=== PATIENT | male | born 1965 | race African-American/Black ===

== ENCOUNTER 2017-02-24 00:54 | Emergency (ER) | payer MEDICAID, OTHER ==
[~2017-02-24] VITALS: Ht 193 cm; Wt 86.2 kg
[~2017-02-24 00:54] MED LIST: IBUPROFEN600 MG ORAL; TRAMADOL HCL50 MG ORAL
[2017-02-24] MEDS ORDERED: Aspirin Baby 81mg ORAL ONE (01:30)
[2017-02-24 01:51] VITALS: BP 103/86
[2017-02-24 02:10] LABS: BASOPHILS % (AUTO) 0.4 % (0.0-2.0); BILIRUBIN, URINE NEGATIVE (NEGATIVE); EOSINOPHILS % (AUTO) 1.3 % (0.0-3.0); GLUCOSE, URINE (UA) NEGATIVE (NEGATIVE); HEMATOCRIT 40.6 % (42.0-52.0); KETONES,URINE NEGATIVE (NEGATIVE); LEUKOCYTE ESTERASE ,URINE 2+ (NEGATIVE); LYMPHOCYTES % (AUTO) 15.6 % (20.0-45.0); MEAN CORPUSCULAR VOLUME 93 FL (80-99); MONOCYTES % (AUTO) 7.7 % (1.0-10.0); NITRITE,URINE POSITIVE (NEGATIVE); PH,URINE 6 (4.5-8.0); PLATELET COUNT 259 K/UL (150-450); PROTEIN,URINE 2+ (NEGATIVE); RED BLOOD COUNT 4.34 M/UL (4.70-6.10); UROBILINOGEN,URINE 1 MG/DL (0.0-1.0); WHITE BLOOD COUNT 8.6 K/UL (4.8-10.8)
[2017-02-24 02:30] LABS: APPEARANCE,URINE CLOUDY; COLOR,URINE YELLOW
[2017-02-24] MEDS ORDERED: cefTRIAXone 1 GM in NS 55 ML IVPB ONE (02:45)
[2017-02-24 02:53] LABS: ANION GAP 5 mmol/L (5-15); BLOOD UREA NITROGEN 11 mg/dL (7-18); CALCIUM 7.8 MG/DL (8.5-10.1); CARBON DIOXIDE 33 MMOL/L (21-32); CHLORIDE 104 MMOL/L (98-107); POTASSIUM 3.7 MMOL/L (3.5-5.1); SODIUM 142 MMOL/L (136-145)
--- NOTE | 2017-02-24 03:10 | Emergency Room Report ---
History of Present Illness General Chief Complaint: Chest Pain Source: Patient Present Illness HPI This is a 51-year-old male with no significant past medical history. He presents she complaining of right-sided chest pain for 2 days. Worse with inspiration. Worse with movement. No nausea no vomiting. Subjective fever and chills. Pain is 7/10. No radiation. Allergies: Coded Allergies: No Known Allergies (Unverified , 02/26/16) Patient History Past Medical History: see triage record, old chart reviewed Past Surgical History: other Pertinent Family History: none Social History: Denies: smoking Immunizations: other Reviewed Nursing Documentation: PMH: Agreed, PSxH: Agreed Nursing Documentation-PMH Past Medical History: No Stated History Review of Systems Eye: Denies: eye pain, blurred vision ENT: Denies: ear pain, nose congestion, throat swelling Respiratory: Denies: cough, shortness of breath Cardiovascular: Reports: chest pain, Denies: palpitations Gastrointestinal: Denies: abdominal pain, diarrhea, nausea, vomiting Musculoskeletal: Denies: back pain, joint pain Skin: Denies: rash Neurological: Denies: headache, numbness Endocrine: Denies: increased thirst, increased urine Hematologic/Lymphatic: Denies: easy bruising All Other Systems: negative except mentioned in HPI Physical Exam Vital Signs Date Time Temp Pulse Resp B/P (MAP) Pulse Ox O2 Delivery O2 Flow Rate FiO2 02/24/17 00:56 98.6 79 18 115/71 99 Room Air vitals normal Sp02 EP Interpretation: reviewed, normal General Appearance: well appearing, no apparent distress, alert Head: normocephalic, atraumatic Eyes: bilateral eye PERRL, bilateral eye EOMI ENT: hearing grossly normal, normal pharynx Neck: full range of motion, supple, no meningismus Respiratory: chest non-tender, rhonchi - Right lower lobe Cardiovascular #1: regular rate, rhythm, no murmur Gastrointestinal: normal bowel sounds, non tender, no mass, no organomegaly, no bruit, non-distended Musculoskeletal: back normal, gait/station normal, normal range of motion Psychiatric: mood/affect normal Skin: warm/dry Medical Decision Making Diagnostic Impression: Primary Impression: Chest pain Qualified Codes: R07.9 - Chest pain, unspecified Additional Impressions: Community acquired bacterial pneumonia UTI (urinary tract infection) Qualified Codes: N30.00 - Acute cystitis without hematuria Proteinuria Qualified Codes: R80.9 - Proteinuria, unspecified ER Course Patient presents with right-sided chest pain consistent with pneumonia. No evidence of PE, ACS, dissection to name a few. We'll discharge home. He felt better now. Lab Results Impression labs unremarkable EKG Diagnostic Results Rate: normal Rhythm: NSR ST Segments: no acute changes ASA given to the pt in ED: Yes Rhythm Strip Diag. Results Rhythm Strip Time: 03:10 EP Interpretation: yes Rate: 70 Rhythm: NSR, no PVC's, no ectopy Chest X-Ray Diagnostic Results Chest X-Ray Diagnostic Results : Chest X-Ray Ordered: Yes # of Views/Limited/Complete: 1 View Indication: Chest Pain EP Interpretation: Yes Interpretation: no consolidation, no effusion, no pneumothorax, no acute cardiopulmonary disease Impression: No acute disease Electronically Signed by: Ignacio Roy MD Last Vital Signs Date Time Temp Pulse Resp B/P (MAP) Pulse Ox O2 Delivery O2 Flow Rate FiO2 02/24/17 01:51 79 18 Room Air 02/24/17 01:51 98.6 103/86 100 Status: improved Disposition: HOME, SELF-CARE Condition: Stable Scripts Levofloxacin* (LEVAQUIN*) 500 Mg Tablet 500 MG ORAL DAILY, #7 TAB Prov: IGNACIO ROY M.D. 02/24/17 Referrals: NOT CHOSEN DELORES/,REFERRING (PCP) Additional Instructions: Followup with your DrMagaly in 7 days. Return if symptom worsen. IGNACIO ROY M.D. Feb 24, 2017 03:10
[2017-02-24 03:11] LABS: ALANINE AMINOTRANSFERASE 20 U/L (12-78); ALBUMIN 3.1 G/DL (3.4-5.0); ASPARTATE AMINO TRANSFERASE 18 U/L (15-37); BILIRUBIN,TOTAL 0.4 MG/DL (0.2-1.0); CKMB 0.6 NG/ML (0.0-3.6); CREATINE KINASE 165 U/L (26-140)
[2017-02-24 03:12] LABS: ALKALINE PHOSPHATASE 62 U/L (46-116)
[2017-02-24 03:23] VITALS: BP 117/81
[2017-02-24] MEDS ORDERED: LEVAQUIN500 MG ORAL (05:20)
[2017-02-24 05:36] VITALS: BP 107/67
[2017-02-24 05:37] VITALS: BP 107/67
--- NOTE | 2017-02-24 11:10 | Diagnostic Imaging Report ---
Indication: Chest pain Technique: One view of the chest Comparison: none Findings: Lungs and pleural spaces are clear. Heart size is normal Impression: No acute process
--- NOTE | 2017-02-24 11:26 | Diagnostic Imaging Report ---
ndication: Right-sided chest pain Technique: IV administration nonionic contrast. Spiral acquisitions obtained from the lung bases to the lung apices. Multiplanar and 3-D reconstructions were generated. Total dose length product 1009.4 mGycm. CTDIvol(s) 22.91 mGy. Dose reduction achieved using automated exposure control Comparison: Chest radiograph taken 2 hours earlier Findings: The pulmonary arteries are well opacified. No intraluminal filling defects or other findings to suggest acute pulmonary embolus are demonstrated. No evidence of thoracic aortic aneurysm or dissection. Classic branching anatomy of the great neck vessels is noted. Normal caliber pulmonary arteries. No evidence of right ventricular dilatation. There is generalized pulmonary hyperinflation There is an area of dense consolidation in the anterior medial right middle lobe. Central to this are reticular and nodular opacities. Minimal reticular and nodular opacities are seen also within the adjacent right lower lobe. Reticular opacities are also seen at the base of the left lower lobe, although no associated airspace consolidation is evident. There are bilateral bullae in the upper lobes. No pleural effusion. The heart size is normal. There is no evidence of pericardial effusion. No mediastinal or hilar mass or adenopathy. The included thyroid is unremarkable. The included upper abdominal anatomy is unremarkable Impression: Negative for evidence of acute pulmonary embolus or acute thoracic vascular pathology Dense consolidation within the right middle lobe consistent with pneumonia. Reticular infiltrates are also seen in the bilateral lower lobes COPD changes This agrees with the preliminary interpretation provided overnight by [facility]. The CT scanner at [facility] is accredited by the [employer] and the scans are performed using protocols designed to limit radiation exposure to as low as reasonably achievable to attain images of sufficient resolution adequate for diagnostic evaluation.
--- NOTE | 2017-03-08 00:19 | Cardiology Report ---
APPROVED REPORT EKG Measurement Heart [id number] Normal sinus rhythm Incomplete right bundle branch block Borderline ECG
== END 2017-02-24 05:37 | disposition home or self-care (01) ==
LOC: EMR 01:30
DX: J18.9 Pneumonia, unspecified organism (principal); N39.0 Urinary tract infection, site not specified; R80.9 Proteinuria, unspecified
CPT/HCPCS: 36415; 71010; 71275; 80053; 81003; 82550; 82553; 84484; 85025; 85379; 87086; 87181; 93005; 96365; 99284; J0696; Q9967

== ENCOUNTER 2017-10-06 05:07 | Emergency (ER) | payer MEDICAID, OTHER ==
[~2017-10-06] VITALS: Ht 193 cm; Wt 90.7 kg
[~2017-10-06 05:07] MED LIST changes: +LEVAQUIN500 MG ORAL
[2017-10-06 05:30] VITALS: BP 126/73
[2017-10-06] MEDS ORDERED: TRAMADOL HCL50 MG ORAL (06:40)
[2017-10-06] MEDS ORDERED: IBUPROFEN600 MG ORAL (06:40)
[2017-10-06] MEDS ORDERED: Norco 5mg/325mg tab ORAL ONE (07:00)
[2017-10-06 07:05] VITALS: BP 126/73
--- NOTE | 2017-10-06 12:48 | Diagnostic Imaging Report ---
Indication: Pain in left thumb after hitting it with a saute hurt Technique: 3 views left hand Comparison: none Findings: No acute fractures. No dislocations. The joint spaces are preserved. Positioning is somewhat suboptimal, no true AP view available. Impression: No acute process
--- NOTE | 2017-10-12 16:15 | Emergency Room Report ---
History of Present Illness General Chief Complaint: Upper Extremity Injury Source: Patient Present Illness HPI Patient is a 51-year-old male who presented after increased left upper extremity pain. Patient had injured himself at work. The patient reports having increased pain to his thumb. He reports having increased pain with movements. Pain is sharp in nature.The patient was initially noted to have some symptoms consistent with dysuria. He had prior history of urinary tract infection.The this was unrelated to the patient's injury at work Allergies: Coded Allergies: No Known Allergies (Unverified , 02/26/16) Patient History Past Medical History: see triage record Reviewed Nursing Documentation: PMH: Agreed; PSxH: Agreed Nursing Documentation-PMH Past Medical History: No Stated History Review of Systems All Other Systems: negative except mentioned in HPI Physical Exam General Appearance: well appearing, no apparent distress, alert, GCS 15 Head: normocephalic, atraumatic ENT: hearing grossly normal, normal voice Neck: full range of motion, supple Respiratory: no respiratory distress, speaking full sentences Gastrointestinal: normal inspection Musculoskeletal: no calf tenderness Neurologic: normal inspection, alert, oriented x3, normal gait, other - thumb pain to thenar eminence, no ligamentous laxity noted Psychiatric: mood/affect normal Skin: no rash Medical Decision Making Diagnostic Impression: Primary Impression: Left thumb sprain ER Course Patient presented for thumb pain. Differential diagnosis included was not limited to fracture, dislocation, sprain among others. X-ray imaging of the left hand 3 views interpreted by me showed normal bony alignment without fracture. The patient was placed on light duty. He is advised follow-up with workers comp physician. The patient is advised to return if he had any concerns. The patient is advised follow-up with his primary care physician for urinary symptoms Disposition: HOME, SELF-CARE Condition: Stable Scripts Tramadol Hcl* (ULTRAM*) 50 Mg Tablet 50 MG ORAL Q6H PRN for For Pain, #30 TAB 0 Refills Prov: Matthias Brown MD 10/06/17 Ibuprofen* (MOTRIN*) 600 Mg Tablet 600 MG ORAL Q8H PRN for For Pain, #30 TAB 0 Refills Prov: Matthias Brown MD 10/06/17 Referrals: NOT CHOSEN [facility]/MD,REFERRING (PCP) Patient Instructions: Thumb Sprain Matthias Brown MD Oct 12, 2017 16:15
== END 2017-10-06 07:05 | disposition home or self-care (01) ==
LOC: EMR 06:42
DX: S63.602A Unspecified sprain of left thumb, initial encounter (principal); X50.9XXA Other and unspecified overexertion or strenuous movements or postures, initial encounter; Y92.512 Supermarket, store or market as the place of occurrence of the external cause; Y99.0 Civilian activity done for income or pay
CPT/HCPCS: 99283

== ENCOUNTER 2018-04-05 19:50 | Emergency (ER) | payer MEDICAID ==
[~2018-04-05] VITALS: Ht 193 cm; Wt 90.7 kg
--- NOTE | 2018-04-05 20:25 | NUR ---
ED Nurse Note: Pt c/o R knee pain since last week, pain level 8/10. per pt pain may have percipitated from work related maneuvers. Pt also c/o genital rash that he just noticed today.
[2018-04-05 20:30] VITALS: BP 119/68
[2018-04-05] MEDS ORDERED: IBUPROFEN600 MG ORAL (21:14)
--- NOTE | 2018-04-05 21:20 | Emergency Room Report ---
History of Present Illness General Chief Complaint: Pain Source: Patient Present Illness HPI Patient presents emergency department today complaining of right knee pain. 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 He noticed that his right knee has become more swollen over last week with increasing tenderness and occultly with movement. He denies any trauma. No other complaints are noted. States the swelling is actually improved. He denies having history of gout or large amount of food. Denies any penile discharge or other complaints. No other complaint or noted. Symptoms noted to moderate.No other modifying factors. No other associated signs and symptoms. No other complaints were noted. Allergies: Coded Allergies: No Known Allergies (Unverified , 02/26/16) Patient History Past Medical History: none Past Surgical History: none Pertinent Family History: none Social History: Denies: smoking, alcohol use, drug use Reviewed Nursing Documentation: PMH: Agreed; PSxH: Agreed Nursing Documentation-PMH Past Medical History: No Stated History Review of Systems All Other Systems: negative except mentioned in HPI Physical Exam Vital Signs Date Time Temp Pulse Resp B/P (MAP) Pulse Ox O2 Delivery O2 Flow Rate FiO2 04/05/18 20:15 98.2 75 18 119/68 98 Room Air Sp02 EP Interpretation: reviewed, normal General Appearance: normal inspection, well appearing, no apparent distress, alert Head: atraumatic Eyes: bilateral eye normal inspection ENT: normal ENT inspection, hearing grossly normal, normal voice Neck: normal inspection, full range of motion, supple, no bony tend Respiratory: normal inspection, lungs clear, normal breath sounds, no respiratory distress, no retraction, no wheezing Cardiovascular #1: regular rate, rhythm, no edema Gastrointestinal: normal inspection, normal bowel sounds, non tender, soft, no guarding, no hernia Genitourinary: no CVA tenderness Musculoskeletal: swelling - right knee, tender, pain limited range of motion Neurologic: normal inspection, alert, responsive, speech normal Psychiatric: normal inspection, judgement/insight normal, mood/affect normal Skin: normal inspection, normal color, no rash Procedures Splinting Splinting : Consent: Verbal Location: right knee Pre-Made Type: CAMERON wrap Pre-Proc Neuro Vasc Exam: normal Post-Proc Neuro Vasc Exam: normal Patient Tolerated: Well Complications: None Medical Decision Making Diagnostic Impression: Primary Impression: Knee effusion, right Additional Impression: Sprain of right knee/leg ER Course Patient presents emergency department today complaint right knee pain. Differential considerations cofactors dislocation versus strain. Patient's exam consistent with a joint effusion. Differential diagnoses also includes gout and osteoarthritis. There is no evidence of gout on exam fluid is minimal disc cannot be draining because of a small amount. X-rays were obtained and patient right knee denies show any evidence of acute injury. Given patient presentation felt was reasonable since patient home with rest pain medications and Cameron bandage. Recommend outpatient follow-up and possible MRI. Patient was understanding.Patient is advised to follow up with primary doctor in 2-3 days and return the emergency room for any worsening symptoms and as needed. Other X-Ray Diagnostic Results Other X-Ray Diagnostic Results : X-Ray ordered: right knee # of Views/Limited Vs Complete: 3 View Indication: Pain EP Interpretation: Yes Interpretation: no dislocation, no soft tissue swelling, no fractures Impression: No acute disease Electronically Signed by: Electronically signed by Paul Sinha MD Last Vital Signs Date Time Temp Pulse Resp B/P (MAP) Pulse Ox O2 Delivery O2 Flow Rate FiO2 04/05/18 20:30 98.2 75 18 119/68 98 Room Air Status: improved Disposition: HOME, SELF-CARE Condition: Stable Scripts Ibuprofen* (MOTRIN*) 600 Mg Tablet 600 MG ORAL Q8H PRN for For Pain, #30 TAB 0 Refills Prov: Paul Sinha MD 04/05/18 Patient Instructions: Elastic Bandage and RICE, Knee Effusion, [id number], Knee Pain, [id number] Paul Sinha MD Apr 05, 2018 21:20
[2018-04-05 21:40] VITALS: BP 119/68
--- NOTE | 2018-04-05 21:41 | NUR ---
ED Nurse Note: PT IS D/C PER ERMD ORDER. PT IS AOX4. PT WAS GIVEN DC AND PRECRIPTION INSCTRUCTIONS. PT VERABILZED UNDERSTANDING, PT IS ABLE TO AMBULATE WITH STEADY GAIT. ID BAND REMOVED. PT TOOK ALL BELONGINGS
--- NOTE | 2018-04-06 11:14 | Diagnostic Imaging Report ---
Indication: Pain Knee pain/trauma 3 views of the right knee were obtained. Findings: No acute fracture, malalignment, or joint effusion are identified. Joint space is relatively well-maintained. Impression: Negative for acute findings.
== END 2018-04-05 21:40 | disposition home or self-care (01) ==
LOC: EMR 21:40
DX: M25.461 Effusion, right knee (principal); S83.91XA Sprain of unspecified site of right knee, initial encounter; X50.9XXA Other and unspecified overexertion or strenuous movements or postures, initial encounter; Y92.89 Other specified places as the place of occurrence of the external cause
CPT/HCPCS: 99283

== ENCOUNTER 2018-06-16 16:37 | Emergency (ER) | payer MEDICAID ==
[~2018-06-16] VITALS: Ht 193 cm; Wt 90.7 kg
--- NOTE | 2018-06-16 16:50 | NUR ---
STILL NOT IN THE WAITING ROOM UPON CALLED FOR TRIAGE
[2018-06-16] MEDS ORDERED: NKM (17:05)
--- NOTE | 2018-06-16 17:12 | NUR ---
ED Nurse Note: pt walked in s/p fall, pt reports he slipped and fell in the bathroom, and hit his head against the toilet, pt denies loc, noted lac on right eyebrow about 2 inch, scant bleeding noted. will cont monitor. pt reports left arm pain, cms intact, no obvious deformity, nor contusion nor open wound, will cont monitor.
[2018-06-16 17:22] VITALS: BP 116/73
[2018-06-16] MEDS: Tetanus/Diptheria/Pertussis IM ONE (17:48)
--- NOTE | 2018-06-16 18:06 | Emergency Room Report ---
History of Present Illness General Chief Complaint: Multiple Trauma/Fall Source: Patient Present Illness HPI 52-year-old male presents with right eyebrow laceration that began earlier today. States he was taken a shower when he had slipped and hit his right eyebrow toilet which is adjacent to the shower stating that his left forearm to the brunt of the fall. He denies any headache, blurred vision, KO, neck pain. He declined having x-rays of his left shoulder a CT of the head. His tetanus shot is out of date is here for repair of his right eyebrow laceration. Allergies: Coded Allergies: No Known Allergies (Unverified , 02/26/16) Patient History Past Surgical History: none Pertinent Family History: none Reviewed Nursing Documentation: PMH: Agreed; PSxH: Agreed Nursing Documentation-PMH Past Medical History: No Stated History Review of Systems All Other Systems: negative except mentioned in HPI Physical Exam Vital Signs Date Time Temp Pulse Resp B/P (MAP) Pulse Ox O2 Delivery O2 Flow Rate FiO2 06/16/18 16:59 98.4 67 16 116/73 100 Room Air Sp02 EP Interpretation: reviewed, normal General Appearance: no apparent distress, alert, GCS 15, non-toxic Head: normocephalic, atraumatic Eyes: bilateral eye normal inspection, bilateral eye PERRL ENT: hearing grossly normal, normal pharynx, no angioedema, normal voice, TMs + canals normal Neck: full range of motion, no bony tend, supple/symm/no masses Respiratory: chest non-tender, lungs clear, normal breath sounds, speaking full sentences Cardiovascular #1: regular rate, rhythm, no edema Musculoskeletal: back normal, gait/station normal, normal range of motion Neurologic: alert, oriented x3, responsive, motor strength/tone normal, sensory intact, speech normal Psychiatric: judgement/insight normal, memory normal, mood/affect normal, no suicidal/homicidal ideation Skin: normal color, no rash, warm/dry, well hydrated, laceration - 2 cm superficial laceration to the right eyebrow Procedures Laceration/Wound Repair Laceration/Wound Repair : Wound Location: head Wound's Depth, Shape: superficial, linear Wound Length (cm): 2 Wound Explored: clean Betadine Prep?: Yes Wound Repaired With: Dermabond Patient Tolerated: Well Complications: None Medical Decision Making PA Attestation Dr. Mishra is my supervising physician with whom patient management has been discussed with. Diagnostic Impression: Primary Impression: Eyebrow laceration Qualified Codes: S01.111A - Laceration without foreign body of right eyelid and periocular area, initial encounter Additional Impression: Forearm contusion Qualified Codes: S50.12XA - Contusion of left forearm, initial encounter ER Course 52-year-old male presents with right eyebrow laceration and left forearm contusion status post slip and fall in the shower today. He denies have any KO he has no neurological symptoms. He has no focal neurological deficits on exam. He is a 2 cm laceration above his right eyebrow which was repaired Via Dermabond after irrigation. Patient was offered a CT of the head and a x-ray of his left forearm which he declined. At this time the patient appears stable for discharge home without any emergent exam findings. Will provide printed patient care instructions, and any necessary prescriptions. Care plan and follow up instructions have been discussed with the patient prior to discharge. Last Vital Signs Date Time Temp Pulse Resp B/P (MAP) Pulse Ox O2 Delivery O2 Flow Rate FiO2 06/16/18 17:22 67 16 Room Air 06/16/18 17:22 98.4 116/73 100 Disposition: HOME, SELF-CARE Condition: Improved Patient Instructions: Facial Laceration Additional Instructions: Keep wound clean and dry. Avoid sun exposure to minimize scarring. Patient advised that they can take a shower or bath, but be sure to pat the area dry with a towel afterward. Patient should come back sooner if they experience any red areas that get bigger, more swollen, have pus draining from wound, or if the site becomes more painful. Take tylenol and motrin as needed for pain. RTC if sxs do not improve or worsen in the next 3-5 days. Advised patient to go to ER if patient experiences new or severe headache, temperature greater than 100.4F (38C), seeing double or having trouble seeing clearly, trouble speaking or hearing, weakness in an arm or leg, an inability to walk without assistance, passing out, numbness or tingling, chest pain, or vomiting that will not stop. Maura Hernandez Jun 16, 2018 18:06
--- NOTE | 2018-06-16 18:14 | NUR ---
ED Nurse Note: pt cleared to be d/c per ER provider, dermabond applied by PA, pt discharge and aftercare instruction provided w/ prescription, pt education done via discussion and handout, pt advised to follow up with pcp or return to ed if changes in condition, pt verbalized understanding and agrees with plan, vss, ambulatory w/ steady gait, left w/ all belongings, ID band removed.
[2018-06-16 18:15] VITALS: BP 121/76
[2018-06-16] MEDS ORDERED: NAPROXEN500 M1 ORAL (18:15)
== END 2018-06-16 18:15 | disposition home or self-care (01) ==
LOC: EMR 17:38
DX: S01.111A Laceration without foreign body of right eyelid and periocular area, initial encounter (principal); S50.12XA Contusion of left forearm, initial encounter; W01.198A Fall on same level from slipping, tripping and stumbling with subsequent striking against other object, initial encounter; Y93.E1 Activity, personal bathing and showering; Y92.002 Bathroom of unspecified non-institutional (private) residence as the place of occurrence of the external cause; Z23 Encounter for immunization
CPT/HCPCS: 12011; 90471; 90715; 99283; Z7502

== ENCOUNTER 2018-11-03 00:14 | Emergency (ER) | payer MEDICAID ==
[~2018-11-03] VITALS: Ht 193 cm; Wt 90.7 kg
[~2018-11-03 00:14] MED LIST changes: +HYDROCODON-ACE1 EA15 ORAL; +NAPROXEN500 M1 ORAL; +NKM
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
[2018-11-03 00:34] VITALS: BP 108/73
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
[2018-11-03] MEDS ORDERED: IBUPROFEN600 MG ORAL (05:53)
[2018-11-03] MEDS ORDERED: PENICILLIN V P500 MG PO (05:53)
[2018-11-03] MEDS ORDERED: Acetaminophen 500mg (ES) tab ORAL ONE (06:00)
[2018-11-03] MEDS ORDERED: Ibuprofen Susp 100mg/5ml ORAL ONE (06:00)
--- NOTE | 2018-11-03 06:05 | NUR ---
ED Nurse Note: PT cleared to be d/c per ermd, pt discharge and aftercare instruction provided, pt education done via discussion and handout, pt prescription sent electronically, pt advised to follow up with pcp or return to ed if changes in condition, pt verbalized understanding and agrees with plan, pt vss, pt ambulatory w/ steady gait, pt left w/ all belongings,
[2018-11-03 06:06] VITALS: BP 116/86
== END 2018-11-03 06:06 | disposition home or self-care (01) ==
LOC: EMR 00:50
DX: R51 Headache (principal); Y04.2XXA Assault by strike against or bumped into by another person, initial encounter
CPT/HCPCS: 70486; 99284

== ENCOUNTER 2019-04-01 23:12 | Emergency (ER) | payer MEDICAID ==
[~2019-04-01] VITALS: Ht 193 cm; Wt 90.7 kg
[~2019-04-01 23:12] MED LIST changes: +PENICILLIN V P500 MG PO
[2019-04-01 23:35] VITALS: BP 121/73
--- NOTE | 2019-04-01 23:35 | NUR ---
ED Nurse Note: Pt walked into ED c/o low back pain for a couple days ago but today it gotten worse. Denies fall/ injury. Also c/o chest congestion due to cough. Not in any distress. Afebrile. VSS.
[2019-04-02] MEDS ORDERED: Acetaminophen 500mg (ES) tab ORAL ONE
[2019-04-02] MEDS ORDERED: Ketorolac 30mg Inj IM ONE
[2019-04-02] MEDS ORDERED: Methocarbamol 750mg tab ORAL ONE
--- NOTE | 2019-04-02 | NUR ---
ED Nurse Note: ERMD at bedside.
--- NOTE | 2019-04-02 00:28 | NUR ---
ED Nurse Note: Pt was taken for CT via wc, accompanied by a tech.
--- NOTE | 2019-04-02 00:45 | NUR ---
ED Nurse Note: Pt came back from CT, not in any distress.
--- NOTE | 2019-04-02 01:52 | Diagnostic Imaging Report ---
INDICATION: Abdominal pain TECHNIQUE: Continuous helical transaxial imaging of the abdomen and pelvis was obtained from the lung bases to the pubic symphysis. No intravenous contrast was administered. Coronal 2-D reformats were also obtained. Automatic Exposure Control was utilized. Total Dose length Product (DLP): 1183.[address] Dose Index Volume (CTDIvol): 20.6 mGy Comparison: 01/11/2019 FINDINGS: Lungs: The visualized lung bases are clear. Liver: Unremarkable Gallbladder/biliary system: No gallstones are identified. There is no evidence of intrahepatic or extrahepatic biliary ductal dilatation. Spleen: Unremarkable Pancreas: Unremarkable Kidneys: No definite stone or hydronephrosis are identified.. Adrenal glands: Unremarkable Bowel: Unremarkable. Bladder: Unremarkable Aorta/IVC: Moderate calcification of the vital of the aorta and iliac arteries noted. There is no aneurysm. Peritoneum: There is no free fluid. Bones: Unremarkable IMPRESSION: No acute findings [facility] has communicated the preliminary results to the Emergency Department. Their findings are largely concordant with this report. Note: Evaluation of solid organs is limited on non contrast imaging. The CT scanner at [facility] is accredited by the [employer] and the scans are performed using dose optimization techniques as appropriate to a performed exam including Automatic Exposure control.
[2019-04-02] MEDS ORDERED: NAPROXEN250 MG ORAL (02:09)
[2019-04-02] MEDS ORDERED: TYLENOL325 MG ORAL (02:09)
[2019-04-02] MEDS ORDERED: LIDODERM700 M1 TOPIC (02:09)
[2019-04-02] MEDS ORDERED: ROBAXIN-750750 MG PO (02:09)
--- NOTE | 2019-04-02 02:09 | Emergency Room Report ---
History of Present Illness General Chief Complaint: Back Pain-No Injury Source: Patient Present Illness HPI 53-year-old male presents with recurrent back pain, patient earlier this morning around 10 AM woke up, he felt that his back was sore he endorsed a sharp achy pain worsened with movement alleviated with rest severity was moderate, intermittent no perineal numbness no focal weakness, no difficulty urinating, no urinary retention/incontinence patient presents for evaluation Allergies: Coded Allergies: No Known Allergies (Unverified , 07/21/18) Patient History Past Medical History: see triage record Social History: Reports: smoking Reviewed Nursing Documentation: PMH: Agreed; PSxH: Agreed Nursing Documentation-PMH Past Medical History: No Stated History Physical Exam Vital Signs Date Time Temp Pulse Resp B/P (MAP) Pulse Ox O2 Delivery O2 Flow Rate FiO2 04/01/19 23:27 99.0 84 19 121/73 (89) 99 Room Air General Appearance: well appearing, no apparent distress Head: normocephalic, atraumatic ENT: hearing grossly normal, normal voice Neck: full range of motion, supple Respiratory: no respiratory distress, speaking full sentences Musculoskeletal: gait/station normal, other - Back: No midline tenderness no step-offs, paraspinal tenderness bilaterally at the lumbar region Neurologic: alert, motor strength/tone normal, normal gait Psychiatric: mood/affect normal Skin: no rash Medical Decision Making Diagnostic Impression: Primary Impression: Back pain Qualified Codes: M54.5 - Low back pain ER Course The patient presents with acute onset of back pain. Clinically this patient can be ruled out for serious pathology given there is a completely normal neurological exam, no history of IV drug use, and no history of bowel or bladder incontinence, no perianal numbness/tingling, no constipation or urinary retention. Once the patient's pain was adequately controlled, the patient was able to ambulate and be discharged in stable condition with anticipatory guidance provided. CT/MRI/US Diagnostic Results CT/MRI/US Diagnostic Results : Impression Procedure: CT Abdomen Pelvis WO Contrast CT ABDOMEN + PELVIS Without Contrast: Comparison: CT abdomen and pelvis 01/11/19 Impression: No acute finding. Mild hepatomegaly. No renal stone or hydronephrosis. Unopacified solid organs otherwise unremarkable. Appendix not identified, but no pericecal inflammatory changes to suggest acute appendicitis. No free air or free fluid. No bowel obstruction. Mild atherosclerotic calcifications. Dictated By: NEEMA ELIZONDO Electronically Signed By: Signed Date/Time CC: Last Vital Signs Date Time Temp Pulse Resp B/P (MAP) Pulse Ox O2 Delivery O2 Flow Rate FiO2 04/02/19 00:41 99.0 04/01/19 23:35 84 19 121/73 99 Room Air Disposition: HOME, SELF-CARE Condition: Stable Scripts Acetaminophen (Tylenol) 325 Mg Tablet 650 MG ORAL Q6H PRN for Prn Pain/Headache/Temp > 101, #30 TAB 0 Refills Prov: Gadiel Aguirre MD 04/02/19 Lidocaine Patch* (Lidoderm Patch*) 1 Each Adh..patch 1 PATCH TOPIC DAILY, #7 PATCH 0 Refills Patch(es) may remain in place for up to 12 hours in any 24-hour period. Prov: Gadiel Aguirre MD 04/02/19 Methocarbamol* (ROBAXIN-750*) 750 Mg Tablet 750 MG PO QID, #28 TAB 0 Refills Prov: Gadiel Aguirre MD 04/02/19 Naproxen* (NAPROSYN*) 250 Mg Tablet 250 MG ORAL BID PRN for For Pain, #20 TAB 0 Refills Prov: Gadiel Aguirre MD 04/02/19 Referrals: [facility]. [facility] Patient Instructions: Back Pain, Adult Additional Instructions: The patient was provided with discharge instructions, notified to follow-up with a primary care doctor and or specialist in the next 24-48 hours, and to return to the ED if they have worsening of their symptoms. Please note that this report is being documented using [employer] technology. This can lead to erroneous entry secondary to incorrect interpretation by the dictating instrument. Gadiel Aguirre MD Apr 02, 2019 02:09
[2019-04-02 02:15] VITALS: BP 130/71
--- NOTE | 2019-04-02 02:15 | NUR ---
ED Nurse Note: Pt cleared by ERMD for discharge. DC instructions/prescription was given and explained to pt and verbalized understanding of teachings. All medical deviecs such as ID band removed. Pt is AAO x4, ambulatory and left with all personal belongings.
== END 2019-04-02 02:15 | disposition home or self-care (01) ==
LOC: EMR 23:59
DX: M54.5 Low back pain (principal); R16.0 Hepatomegaly, not elsewhere classified
CPT/HCPCS: 74176; 96372; J1885; Z7502; 99284

== ENCOUNTER 2020-05-15 01:35 | Emergency (ER) | payer MEDICAID ==
[~2020-05-15] VITALS: Ht 193 cm; Wt 95.3 kg
[~2020-05-15 01:35] MED LIST changes: +LIDODERM700 M1 TOPIC; +NAPROXEN250 MG ORAL; +ROBAXIN-750750 MG PO; +TYLENOL325 MG ORAL
[2020-05-15 01:43] VITALS: BP 116/70
[2020-05-15] MEDS ORDERED: HYDROcodone/Acetamin 5/325 tab ORAL ONE (02:00)
[2020-05-15] MEDS ORDERED: Ketorolac 60mg Inj IM ONE (02:00)
[2020-05-15] MEDS ORDERED: HYDROCODON-ACE1 EA15 ORAL (02:03)
[2020-05-15] MEDS ORDERED: IBUPROFEN600 M1 ORAL (02:03)
--- NOTE | 2020-05-15 02:03 | Emergency Room Report ---
History of Present Illness General Chief Complaint: Lower Extremity Injury Source: Patient Present Illness [facility] This is a 54-year-old male with no significant past medical history. He presents with chief complaint of right hip and right thigh pain. Onset for last 5 days or so. He said he has a rental car for last week. It was too small and is causing him 2 weeks crunched up in the car. Because of that he is developing hip pain and thigh pain. No trauma. Pain is 9 out of 10. It radiates from his hip to his lateral thigh. No fever chills but no swelling. Worse with certain position. Better with certain position. Pain is sharp in nature. No incontinence of bowel or urine. No anesthesia. Allergies: Coded Allergies: No Known Allergies (Unverified , 07/21/18) COVID-19 Screening Contact w/high risk pt: No Experienced COVID-19 symptoms?: No COVID-19 Testing performed [employer]: No Patient History Past Medical History: see triage record, old chart reviewed Past Surgical History: none Pertinent Family History: none Social History: Reports: smoking Immunizations: other Reviewed Nursing Documentation: PMH: Agreed; PSxH: Agreed Nursing Documentation-PMH Past Medical History: No Stated History Review of Systems Eye: Denies: eye pain, blurred vision ENT: Denies: ear pain, nose congestion, throat swelling Respiratory: Denies: cough, shortness of breath Cardiovascular: Denies: chest pain, palpitations Gastrointestinal: Denies: abdominal pain, diarrhea, nausea, vomiting Musculoskeletal: Reports: joint pain; Denies: back pain Skin: Denies: rash Neurological: Denies: headache, numbness Endocrine: Denies: increased thirst, increased urine Hematologic/Lymphatic: Denies: easy bruising All Other Systems: negative except mentioned in HPI Physical Exam Vital Signs Date Time Temp Pulse Resp B/P (MAP) Pulse Ox O2 Delivery O2 Flow Rate FiO2 05/15/20 01:43 99.0 73 16 116/70 (85) 100 Room Air Vitals normal Sp02 EP Interpretation: reviewed, normal General Appearance: well appearing, no apparent distress, alert Head: normocephalic, atraumatic Eyes: bilateral eye PERRL, bilateral eye EOMI ENT: hearing grossly normal, normal pharynx Neck: full range of motion, supple, no meningismus Respiratory: chest non-tender, lungs clear, normal breath sounds Cardiovascular #1: regular rate, rhythm, no murmur Gastrointestinal: normal bowel sounds, non tender, no mass, no organomegaly, no bruit, non-distended Musculoskeletal: back normal, normal range of motion, gait/station normal Psychiatric: mood/affect normal Medical Decision Making Diagnostic Impression: Primary Impression: Strain of hip and thigh Qualified Codes: S76.011A - Strain of muscle, fascia and tendon of right hip, initial encounter; S76.911A - Strain of unspecified muscles, fascia and tendons at thigh level, right thigh, initial encounter ER Course Patient with hip and thigh pain from soft tissue injury/strain. No fracture or dislocation. No red flags to indicate septic joint, cauda equina syndrome, spinal epidural abscess or neoplastic process. Will discharge home. Last Vital Signs Date Time Temp Pulse Resp B/P (MAP) Pulse Ox O2 Delivery O2 Flow Rate FiO2 05/15/20 01:43 99.0 73 16 116/70 (85) 100 Room Air Status: improved Disposition: HOME, SELF-CARE Condition: Stable Scripts Ibuprofen* (MOTRIN*) 600 Mg Tablet 600 MG ORAL Q6H PRN for For Pain, #30 TAB 0 Refills Prov: Ignacio Roy MD 05/15/20 Hydrocodone/Acetaminophen 5-325* (HYDROCODONE/ACETAMINOPHEN 5-325*) 1 Each Tablet 1 TAB ORAL Q6H PRN for For Pain, #10 TAB 0 Refills Prov: Ignacio Roy MD 05/15/20 Referrals: NON PHYSICIAN (PCP) Additional Instructions: Follow-up with your doctor in 7 days. Return if symptoms worsen. Ignacio Roy MD May 15, 2020 02:03
== END 2020-05-15 02:45 | disposition home or self-care (01) ==
LOC: EMR 01:58
DX: S76.011A Strain of muscle, fascia and tendon of right hip, initial encounter (principal); S76.911A Strain of unspecified muscles, fascia and tendons at thigh level, right thigh, initial encounter; X58.XXXA Exposure to other specified factors, initial encounter; Y92.9 Unspecified place or not applicable; F17.200 Nicotine dependence, unspecified, uncomplicated
CPT/HCPCS: 96372; Z7502; 99283